=== PATIENT | male | born 1955 | race Caucasian/White ===

== ENCOUNTER 2020-11-14 21:45 | Emergency (ER) | payer OTHER ==
[2020-11-14] MEDS ORDERED: RT-ALBUTEROL/IPRATROPIUM 3 ML (DUONEB) VIAL INH STA (21:53)
[2020-11-14] MEDS ORDERED: TETANUS,DIPTH,PERTUSS P/F (BOOSTRIX) 0.5 ML VIAL IM ONE (22:00)
--- NOTE | 2020-11-14 22:00 | ED General ---
General Chief Complaint: General Problems/Pain Stated Complaint: SUBSTANCE ABUSE Source of Information: Patient, Police ([facility]) History of Present Illness Date Seen by Provider: Nov 14, 2020 Time Seen by Provider: 21:45 Initial Comments 65 yo male brought in by [facility] due to having abrasions to his knees and alcohol intoxication. He has no evidence of head injury. He was at the [facility] drinking tonight and had fallen to his knees. He denies other injuries. he is able to walk. He has a chronic diabetic ulcer to left medial heel and is treating it at home with a silver preparation. He has COPD, DM and HTN. He uses oxygen at home. EMS was called to the scene when he was first picked up and he personally did not have any medical complaints to bring him to the ED. He is asking to be allowed to go home. He was taken by the [facility] to group home and the group home wanted him medically evaluated further for his injury so he was brought to the ED Timing/Duration: 1-3 Hours Severity: Mild Associated Systoms: No Chest Pain; Cough (chronic); No Diaphoresis, No Fever/Chills, No Headaches, No Loss of Appetite, No Malaise, No Nausea/Vomiting, No Seizure; Shortness of Air (chronic); No Syncope Allergies and Home Medications Allergies Coded Allergies: No Known Drug Allergies (Unverified , 11/14/20) Patient Home Medication List Home Medication List Reviewed: Yes Review of Systems Review of Systems Constitutional: No chills, No fever EENTM: no symptoms reported Respiratory: see HPI Cardiovascular: no symptoms reported Gastrointestinal: no symptoms reported Genitourinary: no symptoms reported Musculoskeletal: no symptoms reported Skin: see HPI, other (abrasions to bilateral knees and diabetic ulcer to medial left heel) Psychiatric/Neurological: Denies Headache; Paresthesia (diabetic neuropathy) Past Bfgakuw-Fytthm-Qukhwj Hx Past Med/Social Hx: Reviewed Nursing Past Med/Soc Hx Patient Social History Alcohol Use: Occasionally Uses Recent Hopitalizations: No Past Medical History Surgeries: Yes Abdominal, Gallbladder Respiratory: Yes COPD Cardiac: Yes Hypertension Neurological: No Genitourinary: No Gastrointestinal: No Musculoskeletal: No Endocrine: Yes Diabetes, Non-Insulin dep HEENT: No Cancer: No Psychosocial: No Integumentary: No Blood Disorders: No Physical Exam Vital Signs Vital Signs - First Documented 6/19/21 21:46 Pulse 102 Resp 20 B/P (MAP) 137/88 (104) Pulse Ox 86 O2 Delivery Room Air Capillary Refill : Height, Weight, BMI Height: '" Weight: lbs. oz. kg; BMI Method: General Appearance: No Apparent Distress, WD/WN HEENT: PERRL/EOMI Neck: Non Tender, Supple Respiratory: Chest Non Tender, Lungs Clear, No Accessory Muscle Use, No Respiratory Distress, Wheezing (end expiratory wheeze) Cardiovascular: Regular Rate, Rhythm, Normal Peripheral Pulses Gastrointestinal: Normal Bowel Sounds, No Pulsatile Mass, Non Tender, Soft Rectal: Deferred Extremity: Normal Capillary Refill, Normal Range of Motion, No Pedal Edema, Other (mild tenderness to bilateral knees where he has abrasions. ulcer to medial heel left foot. 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 Norm as Tested Skin: Warm/Dry Progress/Results/Core Measures Suspected Sepsis SIRS Temperature: Pulse: Respiratory Rate: Blood Pressure / Mean: Results/Orders My Orders Orders - BARBARA CHI MD Albuterol/Ipra Inhalation Soln (Duoneb I (11/14/20 21:53) Svn Small Volume Nebulizer (11/14/20 21:53) Wound Dressing-Ed (11/14/20 21:54) Dipht,Pertuss(Acell),Tet Adult (Boostrix (11/14/20 22:00) Vital Signs/I&O 11/14/20 21:46 Pulse 102 Resp 20 B/P (MAP) 137/88 (104) Pulse Ox 86 O2 Delivery Room Air Capillary Refill : Progress Note : Progress Note cleaned abrasions and applied antibiotic ointment with dressing. Updated tetanus booster. Duoneb treatment to help with breathing and oxygen level. Encouraged to follow up with pcp and stop drinking to excess, smoking. Continue home medicines and treatments for chronic conditions and see Dr. Sparrow for follow up Medically stable to go with [facility] Departure Impression Primary Impression: Abrasion of knee, bilateral Additional Impressions: COPD (chronic obstructive pulmonary disease) Qualified Codes: J43.1 - Panlobular emphysema Diabetic foot ulcer Qualified Codes: E10.621 - Type 1 diabetes mellitus with foot ulcer; L97.421 - Non-pressure chronic ulcer of left heel and midfoot limited to breakdown of skin Alcohol intoxication Qualified Codes: F10.920 - Alcohol use, unspecified with intoxication, uncomplicated Disposition: 01 HOME, SELF-CARE Condition: Stable Departure-Patient Inst. Decision time for Depature: 21:59 Referrals: ELIZABETH SPARROW MD NO,LOCAL PHYSICIAN (PCP) Primary Care Physician Patient Instructions: Alcohol Intoxication ED, Abrasions ED Add. Discharge Instructions: Medically stable to be released to law enforcement Keep abrasions on your knees clean with soap and water and apply antibiotic ointment 2 times a day to help them heal. Continue with home medicine and oxygen for your COPD. Continue with treatment at home for the diabetic ulcer on your left heel. Do not drink alcohol to excess. Follow up with your primary doctor for wound check and continued management of your diabetes, COPD, abrasions, Diabetic ulcer. All discharge instructions reviewed with patient and/or family. Voiced understanding. BARBARA CHI MD Nov 14, 2020 22:00
[2020-11-14 22:09] VITALS: BP 146/83
== END 2020-11-14 22:11 | disposition home or self-care (01) ==
LOC: ER FS 21:51
DX: S80.212A Abrasion, left knee, initial encounter (principal); S80.211A Abrasion, right knee, initial encounter; J44.9 Chronic obstructive pulmonary disease, unspecified; E11.621 Type 2 diabetes mellitus with foot ulcer; L97.529 Non-pressure chronic ulcer of other part of left foot with unspecified severity; I10 Essential (primary) hypertension; F10.129 Alcohol abuse with intoxication, unspecified
CPT/HCPCS: 90715; 99284